=== PATIENT | male | born 2000 | race Caucasian/White ===

== ENCOUNTER 2018-05-29 06:18 | Emergency (ER) | payer SELFPAY ==
[2018-05-29] MEDS ORDERED: 0.9 % SODIUM CHLORIDE 1,000 ML IV ONE (06:56)
[2018-05-29] MEDS ORDERED: KETOROLAC TROMETHAMINE 30 MG/1ML VIAL IVP ONE (06:57)
[2018-05-29] MEDS ORDERED: ONDANSETRON HCL/PF 4 MG/ 2ML VIAL IVP ONE (06:57)
--- NOTE | 2018-05-29 07:23 | ED Physician Documentation ---
General Adult - HISTORIAN Historian: patient - HPI Stated Complaint: L groin pain Chief Complaint: General Adult Additional Information: 17yo white male who had a sudden onset of left groin pain. It is constant in nature. No precipitating factor. Hot bath seemed to help some. No previous problems. No blood in urine. No history of hernia. Onset: hours (7 hours) Timing: still present - ROS CONST: denies: fever, chills - PAST HX Past History: other (right myringotomy for recurrent ear infections) Other History: none Surgeries/Procedures: other (R myringotomy) Immunizations: referred to PCP Allergies/Adverse Reactions: Allergies Allergy/AdvReac Type Severity Reaction Status Date / Time No Known Allergies Allergy Verified 05/29/18 07:08 Home Medications: Ambulatory Orders Medication Instructions Recorded Hydrocodone/Acetaminophen 1 each PO Q4 PRN #10 tablet 05/29/18 [Hydrocodone-Acetamin 5-325 mg] Ondansetron HCl Rapdis [Zofran Odt] 4 mg PO Q8 PRN #4 tab 05/29/18 Tamsulosin HCl [Flomax] 0.4 mg PO [id number] #7 cap.er.24h 05/29/18 - SOCIAL HX Smoking History: non-smoker Alcohol Use: none Drug Use: none - FAMILY HX Family History: No - VITAL SIGNS Vital Signs: Vital Signs Temp Pulse Resp BP Pulse Ox 98.2 F 67 16 140/66 96 05/29/18 06:19 05/29/18 06:19 05/29/18 06:19 05/29/18 06:19 05/29/18 06:19 - REVIEWED ASSESSMENTS Nursing Assessment Reviewed: Yes Vitals Reviewed: Yes Progress - Results/Orders Results/Orders: 08:23 Pain down to 3/10, CT shows left pelvic kidney, mild hydronephrosis, 4mm stone. ED Results Lab/Radiology - Radiology Radiology Impressions: CT abdomen and pelvis without IV contrast Clinical history: Flank pain and hematuria Radiation dose DLP 1031 Hepatic steatosis without focal hepatic pathology. Hepatomegaly. Mild splenomegaly. Normal pancreas and adrenal glands. Normal right kidney. Normal appendix. Left pelvic kidney. Left kidney is in the left lower quadrant of the abdomen and low in the pelvis. There is a 6 x 4 mm calculus in the left ureterovesical junction is seen in image number 170 axial ., mild left hydronephrosis. 2 mm calculus in the mid and upper pole the left kidney. Normal lumbar spine. Impression: Left pelvic kidney with 6 x 4 mm calculus at the left ureterovesical junction with mild left hydronephrosis 2 mm calculus in the upper pole the left kidney Hepatomegaly with hepatic steatosis and mild splenomegaly - Orders Orders: ED Orders Category Date Time Status CT ABD & PELVIS W/O CON Stat Exams 05/29/18 Ordered CBC REF Routine Lab 05/29/18 Received CMP Routine Lab 05/29/18 Received LIPASE Stat Lab 05/29/18 Received URINALYSIS Routine Lab 05/29/18 Ordered 0.9 % Sodium Chloride [Normal Saline] 1,000 ml Med 05/29/18 06:56 Active IV Q1H Ketorolac Tromethamine [Toradol] Med 05/29/18 06:57 Discontinued 30 mg IVP NOW ONE Ondansetron HCl/Pf [Zofran 4 mg/2 ml] Med 05/29/18 06:57 Discontinued 4 mg IVP NOW ONE General Adult Physical Exam - PHYSICAL EXAM GENERAL APPEARANCE: mild distress NECK: normal inspection, supple RESPIRATORY: no resp distress, chest non-tender, breath sounds normal. No: wheezes, rales, rhonchi CVS: reg rate & rhythm, heart sounds normal, equal pulses, no murmur ABDOMEN: soft, no organomegaly, normal bowel sounds, no distension, tenderness (mild LLQ). No: rebound, guarding BACK: normal inspection, no CVA tenderness SKIN: warm/dry, normal color EXTREMITIES: non-tender NEURO: oriented X3, CN's nml as tested Discharge Clincal Impression: Kidney stone on left side Prescriptions: Hydrocodone/Acetaminophen [Hydrocodone-Acetamin 5-325 mg] 1 each PO Q4 PRN #10 tablet PRN Reason: Pain Ondansetron HCl Rapdis [Zofran Odt] 4 mg PO Q8 PRN #4 tab PRN Reason: Nausea / Vomiting Tamsulosin HCl [Flomax] 0.4 mg PO [id number] #7 cap.er.24h Referrals: Primary Doctor,No [Primary Care Provider] - 2 Days Condition: Stable Disposition: 01 HOME, SELF-CARE Decision to Admit: NO Date of Decison to Admit: 05/29/18 Decision Time: 08:39 Physical Exam - Physical Exam General Appearance: WD/WN, moderate distress (7/10) Cardiovascular/Respiratory: regular rate, rhythm, no M/R/G, normal peripheral pulses, normal breath sounds, no respiratory distress Gastrointestinal/Abdominal: normal bowel sounds, soft, tenderness (LLQ mild) Male Genital Exam: normal genitalia, no hernia, other (no testicular swelling or tenederness, epididymus normal to palpation, Penis normal, no discharge noted. No ingunial hernia noted.) Back Exam: normal inspection, no CVA tenderness Neurologic: oriented x 3 Skin Exam: normal color, warm/dry
[2018-05-29 07:30] LABS: eGFR (Non-African) > 60
[2018-05-29 07:33] LABS: APPEARANCE,URINE NOT DOCUMENTED (CLEAR); COLOR,URINE NOT DOCUMENTED (YELLOW); OCCULT BLOOD,URINE 3+ (NEGATIVE); PH URINE 6.5 (5.0 - 8.0)
[2018-05-29 08:31] LABS: BASO % 0.3 % (0.0-1.5); EOS % 0.2 % (0.0-6.8); LYMPH ABS # 1.81 thou/uL (0.60-4.00); MCH. 28.6 pg (28.0-34.0); MCV 81.7 fL (80.0-100.0); MONOCYTE % 7.9 % (0.0-11.0); MONOCYTE ABS # 1.25 thou/uL (0.00-0.90); PLATELET COUNT 303 thou/uL (130-400)
--- NOTE | 2018-05-29 08:50 | Diagnostic Imaging Report ---
HEN[facility] GASPAR [id number] [facility] [address] [place], [place]. [address] Report Submission Date: May 29, 2018 8:25:00 AM CDT Patient Study Name: DEJON VANG Date: May 29, 2018 7:38:08 AM CDT Modality Type: CT\SR Gender: M Description: CT ABD PELVIS W/O CO : 98 Institution: Physician: HENRY GASPAR CT abdomen and pelvis without IV contrast Clinical history: Flank pain and hematuria Radiation dose DLP 1031 Hepatic steatosis without focal hepatic pathology. Hepatomegaly. Mild splenomegaly. Normal pancreas and adrenal glands. Normal right kidney. Normal appendix. Left pelvic kidney. Left kidney is in the left lower quadrant of the abdomen and low in the pelvis. There is a 6 x 4 mm calculus in the left ureterovesical junction is seen in image number 170 axial ., mild left hydronephrosis. 2 mm calculus in the mid and upper pole the left kidney. Normal lumbar spine. Impression: Left pelvic kidney with 6 x 4 mm calculus at the left ureterovesical junction with mild left hydronephrosis 2 mm calculus in the upper pole the left kidney Hepatomegaly with hepatic steatosis and mild splenomegaly Electronically signed on May 29, 2018 8:25:00 AM CDT by: Matthias SYLVESTER
[2018-05-29 09:19] VITALS: BP 118/71
== END 2018-05-29 09:14 | disposition home or self-care (01) ==
LOC: ED 06:18
DX: N20.0 Calculus of kidney (principal)
CPT/HCPCS: 74176; 80053; 81002; 83690; 85025; J1885; J2405; J7030; 96365; 96375; 99284; S1016

== ENCOUNTER 2019-06-30 08:15 | Emergency (ER) | payer OTHER ==
--- NOTE | 2019-06-30 08:32 | ED Physician Documentation ---
Ear Complaints - HISTORIAN Historian: patient - HPI Chief Complaint: Allergies Additional Information: Patient presents with right ear discomfort x 2 months. Denies f/c/n/v/d. Timing: better Location of Pain: R ear Severity: mild Associated Symptoms: aching. denies: fever, chills, sharp pain - ROS CONST: no problems CVS/RESP: none GI/: denies: nausea, vomiting MS/SKIN/LYMPH: none - PAST HX Past History: ear tubes Immunizations: UTD Allergies/Adverse Reactions: Allergies Allergy/AdvReac Type Severity Reaction Status Date / Time No Known Allergies Allergy Verified 05/29/18 07:08 Home Medications: Ambulatory Orders Medication Instructions Recorded Hydrocodone/Acetaminophen 1 each PO Q4 PRN #10 tablet 05/29/18 [Hydrocodone-Acetamin 5-325 mg] Ondansetron HCl Rapdis [Zofran Odt] 4 mg PO Q8 PRN #4 tab 05/29/18 Tamsulosin HCl [Flomax] 0.4 mg PO [id number] #7 cap.er.24h 05/29/18 - SOCIAL HX Smoking History: non-smoker Alcohol Use: none Drug Use: none - FAMILY HX Family History: No - VITAL SIGNS Vital Signs: Vital Signs Temp Pulse Resp BP Pulse Ox 118/71 05/29/18 09:14 - REVIEWED ASSESSMENTS Nursing Assessment Reviewed: Yes Vitals Reviewed: Yes Ear Complaint Physical Exam - EXAM General Appearance: no acute distress, alert Ear: auricle nml, account manager.canal nml, TM's nml Mouth/Throat: lips nml, gums nml, pharynx nml Nose: nml inspection Head/Neck: atraumatic, neck nml inspection Eye: eyes nml inspection, PERRL Resp/CVS: chest non-tender, breath sounds nml, heart sounds nml Abdomen: non-tender Skin: nml color, no skin rash Neuro/Psych: oriented x3, mood/affect nml Discharge Clincal Impression: Seasonal allergies Referrals: Primary Doctor,No [Primary Care Provider] - 2 Days Additional Instructions: Stsrt taking Sudafed daily until Try taking Zyrtec daily Condition: Good Disposition: 01 HOME, SELF-CARE Decision to Admit: NO Decision Time: 08:32
[2019-06-30 08:36] VITALS: BP 146/73
== END 2019-06-30 08:37 | disposition home or self-care (01) ==
LOC: ED 08:15
DX: J30.2 Other seasonal allergic rhinitis (principal)
CPT/HCPCS: 99281; 99282